=== PATIENT | male | born 1995 | race Asian ===

== ENCOUNTER 2018-04-09 17:54 | Emergency (ER) | payer BC ==
[2018-04-09] MEDS ORDERED: IBUPROFEN 600 MG TABLET PO ONE (19:07)
--- NOTE | 2018-04-09 19:35 | ER Document Report ---
ED Medical Screen (RME) - General Chief Complaint: Chest Pain Stated Complaint: CHEST PAIN Time Seen by Provider: 04/09/18 18:57 Notes: Patient is a 22-year-old male that presents to the emergency department for chief complaint of chest pain. Patient reports having chest pain earlier today, while he was lying down around 4:00, lasted about an hour, has since eased up, since he has been sitting up. He had an associated panic attack with them and felt short of breath, he does have a history of anxiety as well. ROS: Other than noted above, the 12 point review of systems was reviewed with the patient and were negative, all pertinent findings are included in the HPI. PHYSICAL EXAMINATION: Vital signs reviewed. GENERAL: Well-appearing, well-nourished and in no acute distress. HEAD: Atraumatic, normocephalic. EYES: Pupils equal round extraocular movements intact, conjunctiva are normal. ENT: Nares patent NECK: Normal range of motion CV: Heart regular rate and rhythm LUNGS: No respiratory distress Musculoskeletal: Normal range of motion NEUROLOGICAL: Normal speech PSYCH: Normal mood, normal affect. MDM: EKG reviewed, had diffuse mild ST elevation, and some OH depressions, concerning for possible pericarditis. Patient seen and examined for rapid initial assessment. Vital signs reviewed. A comprehensive ED assessment and evaluation of the patient, analysis of test results and completion of the medical decision making process will be conducted by additional ED providers. *Note is created using voice recognition software and may contain spelling, syntax or grammatical errors. TRAVEL OUTSIDE OF THE [place] IN LAST 30 DAYS: No - Related Data Allergies/Adverse Reactions: No Known Allergies Allergy (Unverified 04/09/18 18:02) Past Medical History - Social History Frequency of alcohol use: None Drug Abuse: None Renal/ Medical History: Denies: Hx Peritoneal Dialysis Past Surgical History: Reports: Hx Orthopedic Surgery - R shoulder Physical Exam - Vital signs Vitals: Temp Pulse Resp BP Pulse Ox 98.7 F 77 18 156/77 H 97 04/09/18 18:21 04/09/18 18:21 04/09/18 18:21 04/09/18 18:21 04/09/18 18:21 Course - Vital Signs Vital signs: Temp Pulse Resp BP Pulse Ox 98.7 F 77 18 156/77 H 97 04/09/18 18:21 04/09/18 18:21 04/09/18 18:21 04/09/18 18:21 04/09/18 18:21
--- NOTE | 2018-04-09 20:10 | RADIOLOGY REPORT (SQ) ---
EXAM DESCRIPTION: XR CHEST 1 VIEW COMPLETED DATE/TME: 04/09/2018 19:07 CLINICAL HISTORY: 22 years, Male, chest pain COMPARISON: None. NUMBER OF VIEWS: One TECHNIQUE: One PA view of the chest. LIMITATIONS: None. FINDINGS: Cardiomediastinal silhouette is within normal limits. No lung consolidate. No pleural effusion. No pneumothorax. Osseous structures are within normal limits. IMPRESSION: No acute chest finding. copyright 2010 [employer]- All Rights Reserved
[2018-04-09 20:13] LABS: A TYPE INFLUENZA AG NEGATIVE (NEGATIVE); B INFLUENZA AG NEGATIVE (NEGATIVE)
[2018-04-09 20:42] LABS: ABSOLUTE EOSINOPHILS # (AUTO) 0.1 10^3/uL (0.0-0.6); ABSOLUTE LYMPHOCYTES (AUTO) 2.2 10^3/uL (0.5-4.7); ABSOLUTE MONOCYTES (AUTO) 0.4 10^3/uL (0.1-1.4); ABSOLUTE NEUT (AUTO) 4.2 10^3/uL (1.7-8.2); BASOPHILS % (AUTO) 0.5 % (0-2); EOSINOPHILS % (AUTO) 1.7 % (0-6); HEMATOCRIT 41.6 % (37.9-51.0); HEMOGLOBIN 14.6 g/dL (13.5-17.0); LYMPHOCYTES % (AUTO) 31.9 % (13-45); MEAN CORPUSCULAR HEMOGLOBIN 29.4 pg (27.0-33.4); MEAN CORPUSCULAR HGB CONC 35.2 g/dL (32.0-36.0); MEAN CORPUSCULAR VOLUME 84 fl (80-97); MONOCYTES % (AUTO) 6.3 % (3-13); PLATELET COUNT 293 10^3/uL (150-450); RED BLOOD COUNT 4.97 10^6/uL (4.35-5.55); RED CELL DISTRIBUTION WIDTH 13.1 % (11.5-14.0); SEGMENTED NEUTROPHILS % (AUTO) 59.6 % (42-78); TOTAL CELLS COUNTED % (AUTO) 100 %
[2018-04-09 21:06] LABS: ALANINE AMINOTRANSFERASE 26 U/L (21-72); ALBUMIN 4.8 g/dL (3.5-5.0); ALKALINE PHOSPHATASE 42 U/L (38-126); ANION GAP 13 (5-19); ASPARTATE AMINO TRANSFERASE 21 U/L (17-59); BILIRUBIN,DIRECT 0.2 mg/dL (0.0-0.4); BILIRUBIN,TOTAL 0.9 mg/dL (0.2-1.3); BLOOD UREA NITROGEN 18 mg/dL (7-20); CALCIUM 10.3 mg/dL (8.4-10.2); CARBON DIOXIDE 26 mmol/L (22-30); CHLORIDE 104 mmol/L (98-107); CREATINE KINASE 90 U/L (55-170); GLUCOSE 96 mg/dL (75-110); POTASSIUM 4.4 mmol/L (3.6-5.0); SODIUM 143.1 mmol/L (137-145); TOTAL PROTEIN 7.5 g/dL (6.3-8.2)
--- NOTE | 2018-04-09 21:48 | EKG REPORT ---
SEVERITY:- ABNORMAL ECG - SINUS RHYTHM ST ELEV, PROBABLE NORMAL EARLY REPOL PATTERN : Confirmed by: Hermelinda Morrison MD 09-Apr-2018 21:47:29
--- NOTE | 2018-04-09 22:20 | ER Document Report ---
ED General - General Chief Complaint: Chest Pain Stated Complaint: CHEST PAIN Time Seen by Provider: 04/09/18 18:57 Mode of Arrival: Ambulatory Information source: [facility], [facility] Records Notes: 22-year-old male with history of depression, anxiety presents with left-sided chest pain that started 3 hours prior to arrival while at rest. Patient describes the pain as intermittent, sharp and lasting a few minutes at a time. He denies any aggravating or alleviating factors. He does report a recent upper respiratory infection with a minor cough, rhinorrhea. He denies any fever, chills, productive cough, rhinorrhea, sick contacts. Patient did experience some shortness of breath with his chest pain but states that he became very anxious because of the pain which caused him to hyperventilate. Patient denies any family history of early cardiac disease. His only current medication is Zoloft. He does not smoke drink or use illicit drugs. Patient has had prior similar symptoms but became concerned when the pain lasted longer than usual. TRAVEL OUTSIDE OF THE [place] IN LAST 30 DAYS: No - HPI Onset: Just prior to arrival Onset/Duration: Sudden Quality of pain: Stabbing Severity: Mild Associated symptoms: Chest pain, Shortness of breath. denies: Body/muscle aches, Nonproductive cough, Productive cough, Fever, Headache, Hurts to breath, Nausea, Vomiting, Sweating Exacerbated by: Denies Relieved by: Denies Similar symptoms previously: Yes Recently seen / treated by doctor: No - Related Data Allergies/Adverse Reactions: No Known Allergies Allergy (Unverified 04/09/18 18:02) Past Medical History - General Information source: Patient, [facility] Records - Social History Smoking Status: Never Smoker Frequency of alcohol use: None Drug Abuse: None Lives with: Family Family History: Reviewed & Not Pertinent Patient has suicidal ideation: No Patient has homicidal ideation: No Renal/ Medical History: Denies: Hx Peritoneal Dialysis Psychiatric Medical History: Reports: Hx Anxiety Past Surgical History: Reports: Hx Orthopedic Surgery - R shoulder Review of Systems - Review of Systems Constitutional: Recent illness. denies: Fever EENT: denies: Blurred vision, Difficulty swallowing Cardiovascular: Chest pain. denies: Palpitations, Dizziness, Lightheaded Respiratory: Cough - Last week but now resolved, Short of breath Gastrointestinal: denies: Abdominal pain, Nausea, Vomiting Genitourinary: denies: Dysuria, Flank pain Male Genitourinary: No symptoms reported Musculoskeletal: denies: Back pain Skin: denies: Rash Hematologic/Lymphatic: No symptoms reported Neurological/Psychological: denies: Confusion, Headaches -: Yes All other systems reviewed and negative Physical Exam - Vital signs Vitals: Temp Pulse Resp BP Pulse Ox 98.7 F 77 18 156/77 H 97 04/09/18 18:21 04/09/18 18:21 04/09/18 18:21 04/09/18 18:21 04/09/18 18:21 - Notes Notes: PHYSICAL EXAMINATION: GENERAL: Well-appearing, well-nourished and in no acute distress. HEAD: Atraumatic, normocephalic. EYES: Pupils equal round and reactive to light, extraocular movements intact, sclera anicteric, conjunctiva are normal. ENT: Nares patent, oropharynx clear without exudates. Moist mucous membranes. NECK: Normal range of motion, supple without lymphadenopathy LUNGS: Breath sounds clear to auscultation bilaterally and equal. No wheezes rales or rhonchi. HEART: Regular rate and rhythm without murmurs ABDOMEN: Soft, nontender, nondistended abdomen. No guarding, no rebound. No masses appreciated. Musculoskeletal: Normal range of motion, no pitting or edema. No cyanosis. NEUROLOGICAL: Cranial nerves grossly intact. Normal speech, normal gait. Normal sensory, motor exams PSYCH: Normal mood, normal affect. SKIN: Warm, Dry, normal turgor, no rashes or lesions noted. Course - Re-evaluation Re-evalutation: 04/09/18 22:16 Laboratory 04/09/18 04/09/18 04/09/18 19:46 20:28 20:28 WBC 7.0 RBC 4.97 Hgb 14.6 Hct 41.6 MCV 84 MCH 29.4 MCHC 35.2 RDW 13.1 Plt Count 293 Seg Neutrophils % 59.6 Lymphocytes % 31.9 Monocytes % 6.3 Eosinophils % 1.7 Basophils % 0.5 Absolute Neutrophils 4.2 Absolute Lymphocytes 2.2 Absolute Monocytes 0.4 Absolute Eosinophils 0.1 Absolute Basophils 0.0 ESR D-Dimer Sodium 143.1 Potassium 4.4 Chloride 104 Carbon Dioxide 26 Anion Gap 13 BUN 18 Creatinine 0.92 Est GFR ( Amer) > 60 Est GFR (Non-Af Amer) > 60 Glucose 96 Calcium 10.3 H Total Bilirubin 0.9 Direct Bilirubin 0.2 Neonat Total Bilirubin Not Reportable Neonat Direct Bilirubin Not Reportable Neonat Indirect Bili Not Reportable AST 21 ALT 26 Alkaline Phosphatase 42 Creatine Kinase 90 Troponin I C-Reactive Protein Total Protein 7.5 Albumin 4.8 Influenza A (Rapid) NEGATIVE Influenza B (Rapid) NEGATIVE 04/09/18 04/09/18 04/09/18 20:28 20:28 20:28 WBC RBC Hgb Hct MCV MCH MCHC RDW Plt Count Seg Neutrophils % Lymphocytes % Monocytes % Eosinophils % Basophils % Absolute Neutrophils Absolute Lymphocytes Absolute Monocytes Absolute Eosinophils Absolute Basophils ESR 4 D-Dimer Sodium Potassium Chloride Carbon Dioxide Anion Gap BUN Creatinine Est GFR ( Amer) Est GFR (Non-Af Amer) Glucose Calcium Total Bilirubin Direct Bilirubin Neonat Total Bilirubin Neonat Direct Bilirubin Neonat Indirect Bili AST ALT Alkaline Phosphatase Creatine Kinase Troponin I < 0.012 C-Reactive Protein < 5.0 Total Protein Albumin Influenza A (Rapid) Influenza B (Rapid) 04/09/18 20:28 WBC RBC Hgb Hct MCV MCH MCHC RDW Plt Count Seg Neutrophils % Lymphocytes % Monocytes % Eosinophils % Basophils % Absolute Neutrophils Absolute Lymphocytes Absolute Monocytes Absolute Eosinophils Absolute Basophils ESR D-Dimer < 0.27 Sodium Potassium Chloride Carbon Dioxide Anion Gap BUN Creatinine Est GFR ( Amer) Est GFR (Non-Af Amer) Glucose Calcium Total Bilirubin Direct Bilirubin Neonat Total Bilirubin Neonat Direct Bilirubin Neonat Indirect Bili AST ALT Alkaline Phosphatase Creatine Kinase Troponin I C-Reactive Protein Total Protein Albumin Influenza A (Rapid) Influenza B (Rapid) Chest X-Ray 04/09/18 19:07 IMPRESSION: No acute chest finding. copyright 2010 [employer]- All Rights Reserved Temp Pulse Resp BP Pulse Ox 98.7 F 77 18 156/77 H 97 04/09/18 18:21 04/09/18 18:21 04/09/18 18:21 04/09/18 18:21 04/09/18 18:21 22-year-old male with history of anxiety presents with complaint of chest pain that started 3 hours prior to arrival. Described as sharp, stabbing and intermittent. Patient did have a "anxiety attack" which caused him to have shortness of breath for a brief period of time until he arrived to the emergency department. EKG was obtained then is read as diffuse ST elevation suggestive but I do not agree with this. CBC, CMP, CRP, ESR, troponin, d-dimer are within normal limits. Chest x-ray shows no acute findings. Patient did receive Motrin prior to my exam. 04/09/18 22:19 Bedside ultrasound was performed and showed no evidence of pericardial effusion. Will place patient on NSAIDs and advised follow-up within the next 24-48 hours with his primary care physician. Patient was evaluated and treated as appropriate for the patient's presenting symptoms and complaint, with consideration of any critical or life threatening conditions that may be associated with their obtained history and exam as noted above. All results were discussed with patient. Patient provided the opportunity to ask questions, and express concerns. Patient was educated on treatments based on their presumed diagnosis as noted above. At this time we will discharge the patient with re turn precautions and follow-up recommendations. Verbal discharge instructions given a the bedside. Medication warnings reviewed. Patient is in agreement with this plan and has verbalized understanding of return precautions. After careful consideration I feel that that patient can be safely discharged from the emergency department, they were advised to followup with a primary care physician in 2-3 days. Dictation on this chart was performed using voice recognition software and may result in unintended grammatical, spelling, syntax or errors. 04/10/18 00:45 - Vital Signs Vital signs: Temp Pulse Resp BP Pulse Ox 98.3 F 78 18 139/84 H 100 04/09/18 23:19 04/09/18 23:19 04/09/18 18:21 04/09/18 23:19 04/09/18 23:19 - Laboratory Result Diagrams: 04/09/18 20:28 04/09/18 20:28 Laboratory results interpreted by me: 04/09/18 20:28 Calcium 10.3 H - Diagnostic Test Radiology reviewed: Image reviewed, Reports reviewed - EKG Interpretation by Me EKG shows normal: Sinus rhythm Rate: Normal Rhythm: NSR When compared to previous EKG there are: Previous EKG unavailable Discharge - Discharge Clinical Impression: Elevated blood pressure reading, History of anxiety Chest pain Qualifiers: Chest pain type: unspecified Qualified Code(s): R07.9 - Chest pain, unspecified Condition: Good Disposition: HOME, SELF-CARE Instructions: Chest Wall Pain ([facility]), Chest Pain of Unclear Cause ([facility]) Additional Instructions: Follow up with your [id number] hours for further care or return to the ED IMMEDIATELY if symptoms worsen or you have any concerns. If you cannot afford to follow up with your primary care physician a list of low cost clinics have been provided at the end of your discharge papers as well. Most prescribed medications have multiple side effects. The safest thing to do is when filling your prescription speak to your pharmacist regarding possible interactions with your normal home medications and over the counter medications such as Ibuprofen, Tylenol, Benadryl. If you experience any symptoms that cause you discomfort or concern you should discontinue the medication immediately and return to the emergency room or call your primary care physician. You were seen today for chest pain. The exact cause of your pain is unclear. However, based on your cardiac enzyme testing, chest x-ray, and EKG it does not appear that it is from an immediately life-threatening cause at this time. Although your testing here is normal is critical that you follow-up with your primary care physician for continued evaluation of this chest pain and possible stress testing. I recommended you see your physician within the next 24-48 hours to be evaluated for consideration of a stress test. Please return to emergency department immediately if you have worsening of your chest pain, shortness of breath, vomiting, become unable to exert yourself due to pain or difficulty breathing, you pass out, or have any pain that radiates into your arms, jaw, or back. Please also return if you have any additional symptoms that are concerning to you. Prescriptions: Ibuprofen [Motrin 600 Mg Tablet] 600 mg PO TID #15 tablet Forms: Elevated Blood Pressure
[2018-04-09 23:22] VITALS: BP 139/84
== END 2018-04-09 23:28 | disposition home or self-care (01) ==
LOC: ER 17:54
DX: R07.9 Chest pain, unspecified (principal); R03.0 Elevated blood-pressure reading, without diagnosis of hypertension; F32.9 Major depressive disorder, single episode, unspecified; F41.9 Anxiety disorder, unspecified; R06.02 Shortness of breath
CPT/HCPCS: 36415; 71045; 80053; 82550; 84484; 85025; 85379; 85652; 86140; 87804; 93005; 93010; 99285